=== PATIENT | male | born 1965 | race Two or more races ===

== ENCOUNTER 2024-03-05 13:50 | Emergency (ER) | payer MEDICAID ==
[~2024-03-05] VITALS: Ht 165.1 cm; Wt 79.0 kg
[2024-03-05 14:01] VITALS: BP 147/96; PULSE 88; RESP 16; TEMP 98; O2SAT 100
[2024-03-05 14:39] LABS: BASOPHILS % 0.7 % (0.0-2.0); EOSINOPHILS % 2.3 % (0.0-5.0); HEMOGLOBIN. 8.7 g/dL (14.0-18.0); LYMPHOCYTES % 29.4 % (20.0-50.0); MEAN CORPUSCULAR HEMOGLOBIN 18.3 pg (28.0-32.0); MEAN CORPUSCULAR HGB CONC 30.1 g/dL (31.0-37.0); MEAN CORPUSCULAR VOLUME 60.8 fL (80.0-94.0); MEAN PLATELET VOLUME 8.3 fl (7.4-10.4); MONOCYTES % 6.4 % (2.0-8.0); NEUTROPHILS % 61.2 % (40.0-76.0); PLATELET 309 x1000/uL (130-400); RED BLOOD CELL COUNT 4.77 mill/uL (4.7-6.1); RED CELL DISTRIBUTION WIDTH 22.7 % (11.6-14.6); WHITE BLOOD COUNT 5.7 x1000/uL (4.5-11.0)
[2024-03-05 14:44] LABS: CHLORIDE 108 mEq/L (98-107); POTASSIUM 4.1 mEq/L (3.5-5.1); SODIUM 140 mEq/L (136-145)
[2024-03-05 14:45] LABS: ADD RBC MORPHOLOGY YES; CARBON DIOXIDE 28 mEq/L (21-32); DIFFERENTIAL COMMENT 1
[2024-03-05 14:46] LABS: CALCIUM 8.9 mg/dL (8.7-10.4)
[2024-03-05 14:50] LABS: CREATININE 1.1 mg/dL (0.6-1.3); GLUCOSE 139 mg/dL (70-105); UREA NITROGEN BLOOD 13 mg/dL (9-23)
[2024-03-05 14:53] LABS: PARTIAL THROMBOPLASTIN TIME 24.3 sec (23.4-31.0); PROTHROMBIN TIME 10.9 sec (9.6-11.0)
[2024-03-05 15:08] LABS: ANISOCYTOSIS 3+; MICROCYTOSIS 2+; PLATELET ESTIMATE NORMAL
[2024-03-05 15:09] LABS: OVALOCYTES 1+
[2024-03-05] MEDS ORDERED: SUCR1TAB MT (15:44)
[2024-03-05] MEDS ORDERED: PANT40TA51 MT (15:44)
== END 2024-03-05 16:42 | disposition left against medical advice (07) ==
LOC: ER 14:12
DX: D64.9 Anemia, unspecified (principal); Z98.890 Other specified postprocedural states
CPT/HCPCS: 36415; 80048; 85025; 86850; 86900; 99291